=== PATIENT | male | born 1975 | race Caucasian/White ===

== ENCOUNTER 2017-06-13 08:53 | Emergency (ER) | payer SELFPAY ==
--- NOTE | 2017-06-13 09:16 | Emergency Department Record ---
History of Present Illness - General Chief complaint: Rash Stated complaint: RASH Time Seen by Provider: 06/13/17 09:16 Mode of Arrival: Ambulatory - History of Present Illness Initial comments: The patient is here due to 2 problems. He has had an intermittent L arm pruritic rash off and on for years. He denies any new medicines, foods, or skin products. He also has a rash over the medial R foot at the base of the big toe and distal foot. It has been present for 2 months and he has been using OTC antifungal treatments for it. MD complaint: Rash Onset/Timin -: Month(s) Severity: Moderate Quality: Other Consistency: Constant Improves with: Topical medication Worsens with: None Context: None Associated symptoms: Itching Treatments Prior to Arrival: OTC topical medication - Related Data Previous Rx's Medication Instructions Recorded Clotrimazole/Betamethasone Dip 45 gm TP BID #1 cream..g. 06/13/17 [Lotrisone Cream] Allergies Allergy/AdvReac Type Severity Reaction Status Date / Time No Known Drug Allergies Allergy Verified 06/13/17 08:56 Travel Screening - Travel/Exposure Within Last 30 Days Have you traveled within the last 30 days?: No - Travel/Exposure Within Last Year Have you traveled outside the [place] in the last year?: No - Additonal Travel Details Have you been exposed to anyone with a communicable illness?: No - Travel Symptoms Symptom Screening: None Review of Systems Constitutional: Denies: Chills, Fever Past Medical History - SOCIAL HISTORY Smoking Status: Light tobacco smoker (<10/day) Alcohol Use: None Drug Use: None - RESPIRATORY Hx Respiratory Disorders: No - CARDIOVASCULAR Hx Cardio Disorders: No - NEURO Hx Neuro Disorders: No - GI Hx GI Disorders: No - Hx Genitourinary Disorders: No - ENDOCRINE Hx Endocrine Disorders: No - MUSCULOSKELETAL Hx Musculoskeletal Disorders: No - PSYCH Hx Psych Problems: No - HEMATOLOGY/ONCOLOGY Hx Hematology/Oncology Disorders: No Family Medical History Any Significant Family History?: No Physical Exam - General General Appearance: Alert, Cooperative, No acute distress - Head Head exam: Atraumatic, Normocephalic, Normal inspection - Eye Eye exam: Normal appearance, PERRL - Neck Neck exam: Normal inspection, Full ROM. negative: Tenderness - Respiratory Respiratory exam: Normal lung sounds bilaterally. negative: Respiratory distress - Cardiovascular Cardiovascular Exam: Regular rate, Normal rhythm, Normal heart sounds - Extremities Extremities exam: negative: Normal inspection (There is a very faint papular erythematous rash to the lateral L proximal forearm area. It is not tender or palpable and is barely visible. He also has a patch of skin to the R foot at the base of the big toe that appears excoriated and midly erythematous and scaley. It measures 2x1 cm.) Image of Full Body: 1 - Arm rash. Image of Feet: 1 - foot rash. Course Vital Signs 06/13/17 08:58 Temperature 98 F Pulse Rate 71 Respiratory 18 Rate Blood Pressure 127/62 Pulse Ox 98 - Reevaluation(s) Reevaluation #1: I explained to the patient that he is to take an OTC antihistamine for the itching and use the Lotrisone to the L foot rash. He is to F/U with a PCP or [facility] Estimator if not better. 06/13/17 09:31 Disposition Disposition: Discharge Clinical Impression: Dermatitis Disposition: Home, Self-Care Condition: (2) Stable Instructions: Acute Rash (ED) Additional Instructions: Please take an OTC antihistamine for the itching and use the Lotrisone on the big toe rash. Please see your family doctor of a Cost Estimator for recheck in 2-3 weeks if not better. Prescriptions: Clotrimazole/Betamethasone Dip [Lotrisone Cream] 45 gm TP BID #1 cream..g. Forms: Patient Portal Access Time of Disposition: 09:26 Quality - Quality Measures Quality Measures: N/A - Blood Pressure Screening View Details: Yes Does Patient Have Any of the Following: No Blood Pressure Classification: Pre-Hypertensive BP Reading Systolic Measurement: 127 Diastolic Measurement: 62 Screening for High Blood Pressure: < Pre-Hypertensive BP, F/U Documented > [ [id number]] Pre-Hypertensive Follow-up Interventions: Referral to alternative/primary care provider.
== END 2017-06-13 09:29 | disposition home or self-care (01) ==
LOC: ER 08:53
DX: L30.9 Dermatitis, unspecified (principal); F17.210 Nicotine dependence, cigarettes, uncomplicated
CPT/HCPCS: 99282